=== PATIENT | female | born 1995 | race Caucasian/White ===

== ENCOUNTER 2016-03-08 18:09 | Emergency (ER) | payer MEDICAID ==
[~2016-03-08] VITALS: Ht 190.5 cm; Wt 136.1 kg
[~2016-03-08 18:09] MED LIST: BACTRIM DS 8001 TA1 PO; BIRTH CONTROL; HYDROCODON-ACE1 EACH PO; MOTRIN800 MG PO; NKHM; Orphenadrine C100 MG PO; ROBAXIN750 MG PO; SILVADENE1% TP; VICODIN 500 MG-1 TAB PO; VOLTAREN50 M1 PO
[2016-03-08 18:19] VITALS: BP 140/75
[2016-03-08] MEDS ORDERED: TESSALON PERLE100 M1 PO (20:00)
[2016-03-08] MEDS ORDERED: PROVENTIL0.09 MG/A1 INH (20:00)
[2016-03-08] MEDS ORDERED: HYCODAN/HYDROMET5 ML PO (20:00)
== END 2016-03-08 19:57 | disposition home or self-care (01) ==
LOC: ED 18:09
DX: J06.9 Acute upper respiratory infection, unspecified (principal); F17.200 Nicotine dependence, unspecified, uncomplicated

== ENCOUNTER 2017-02-13 15:22 | Emergency (ER) | payer SELFPAY ==
[~2017-02-13] VITALS: Wt 138.3 kg
[~2017-02-13 15:22] MED LIST changes: +HYCODAN/HYDROMET5 ML PO; +PROVENTIL0.09 MG/A1 INH; +TESSALON PERLE100 M1 PO
[2017-02-13 15:36] VITALS: BP 134/45
[2017-02-13 15:53] LABS: BILIRUBIN NEGATIVE (NEGATIVE); BLOOD NEGATIVE (NEGATIVE); CLARITY SL CLOUDY (CLEAR); COLOR YELLOW (YELLOW); GLUCOSE TRACE (NEGATIVE); KETONE NEGATIVE (NEGATIVE); LEUKO ESTERASE TRACE (NEGATIVE); NITRITE NEGATIVE (NEGATIVE); PH 5.5 (5.0-9.0); SPECIFIC GRAVITY 1.025 (1.005-1.030); UROBILINOGEN 0.2 E.U./dl (0.2-1.0)
[2017-02-13 15:59] LABS: BACTERIA 1+
[2017-02-13] MEDS ORDERED: AMINOPHYLLIN200 MG PO (16:14)
== END 2017-02-13 16:17 | disposition home or self-care (01) ==
LOC: ED 15:22
PROVIDERS: Physician Assistant
DX: Z32.01 Encounter for pregnancy test, result positive (principal); O23.41 Unspecified infection of urinary tract in pregnancy, first trimester; O99.331 Smoking (tobacco) complicating pregnancy, first trimester; F17.200 Nicotine dependence, unspecified, uncomplicated; Z3A.01 Less than 8 weeks gestation of pregnancy

== ENCOUNTER 2017-03-03 00:20 | Emergency (ER) | payer OTHER ==
[~2017-03-03] VITALS: Ht 182.8 cm; Wt 145.1 kg
[~2017-03-03 00:20] MED LIST changes: +AMINOPHYLLIN200 MG PO
[2017-03-03 00:31] VITALS: BP 115/65
[2017-03-03 01:10] LABS: BILIRUBIN NEGATIVE (NEGATIVE); BLOOD NEGATIVE (NEGATIVE); CLARITY SL CLOUDY (CLEAR); COLOR YELLOW (YELLOW); GLUCOSE NEGATIVE (NEGATIVE); KETONE 2+ (NEGATIVE); LEUKO ESTERASE NEGATIVE (NEGATIVE); NITRITE NEGATIVE (NEGATIVE); PH 5.5 (5.0-9.0); SPECIFIC GRAVITY >= 1.030 (1.005-1.030); UROBILINOGEN 0.2 E.U./dl (0.2-1.0)
[2017-03-03 01:19] LABS: BACTERIA 2+; EPITHELIAL CELLS 35-40
[2017-03-03] MEDS ORDERED: MACROBID100 M1 PO (02:11)
== END 2017-03-03 02:16 | disposition home or self-care (01) ==
LOC: ED 00:20
PROVIDERS: Emergency Medicine Emergency Medical Services
DX: O9A.211 Injury, poisoning and certain other consequences of external causes complicating pregnancy, first trimester (principal); S39.012A Strain of muscle, fascia and tendon of lower back, initial encounter; M25.561 Pain in right knee; Z3A.12 12 weeks gestation of pregnancy; V89.2XXA Person injured in unspecified motor-vehicle accident, traffic, initial encounter; Y93.89 Activity, other specified; Y92.89 Other specified places as the place of occurrence of the external cause; Y99.8 Other external cause status

== ENCOUNTER → 2017-03-06 | Outpatient (CLI) | payer SELFPAY ==
[~2017-03-06] MED LIST changes: +MACROBID100 M1 PO
== END ==
LOC: US 15:48
DX: Z34.81 Encounter for supervision of other normal pregnancy, first trimester (principal); Z3A.09 9 weeks gestation of pregnancy

== ENCOUNTER → 2017-03-23 | Outpatient (CLI) | payer OTHER | END | disposition home or self-care (01) | LOC: LAB 07:48 | DX: Z34.80 Encounter for supervision of other normal pregnancy, unspecified trimester (principal); Z3A.00 Weeks of gestation of pregnancy not specified ==

== ENCOUNTER 2017-05-20 14:35 | Emergency (ER) | payer OTHER ==
[~2017-05-20] VITALS: Ht 182.8 cm; Wt 131.5 kg
[2017-05-20 14:40] VITALS: BP 101/77
[2017-05-20 15:24] LABS: BASO % 0.2 % (0.0-1.0); EOS # 0.1 10*3/uL (0.0-0.4); EOS % 0.6 % (1.0-4.0); HEMATOCRIT 36.3 % (37.0-47.0); HEMOGLOBIN 12.2 g/dl (12.0-16.0); LYMPH # 2.2 10*3/uL (1.3-4.4); LYMPH % 20.3 % (27.0-41.0); MEAN CELL VOLUME 90.5 fl (81.0-99.0); MEAN CORPUSCULAR HGB 30.4 pg (27.0-31.0); MEAN CORPUSCULAR HGB CONC 33.6 g/dl (33.0-37.0); MEAN PLATELET VOLUME 10.7 fl (9.6-12.3); MONO # 0.6 10*3/uL (0.1-1.0); MONO % 5.9 % (3.0-9.0); NEUT # 7.8 10*3/uL (2.3-7.9); NEUT % 72.7 % (47.0-73.0); PLATELET COUNT AUTOMATED 220 10*3/uL (130-400); RED BLOOD COUNT 4.01 10*6/uL (4.10-5.10); WHITE BLOOD COUNT 10.8 10*3/uL (4.8-10.8)
[2017-05-20 15:30] LABS: BILIRUBIN NEGATIVE (NEGATIVE); BLOOD NEGATIVE (NEGATIVE); CLARITY CLEAR (CLEAR); COLOR YELLOW (YELLOW); GLUCOSE NEGATIVE (NEGATIVE); KETONE 3+ (NEGATIVE); LEUKO ESTERASE 1+ (NEGATIVE); NITRITE NEGATIVE (NEGATIVE); SPECIFIC GRAVITY 1.025 (1.005-1.030); UROBILINOGEN 0.2 E.U./dl (0.2-1.0)
[2017-05-20 15:43] LABS: ALKALINE PHOSPHATASE 56 U/L (45-117); BUN 6 mg/dl (7-24); CHLORIDE 106 mmol/L (98-107); CREATININE 0.44 mg/dL (0.55-1.02); LIPASE 82 U/L (73-393); POTASSIUM 3.7 mmol/L (3.5-5.1); SGOT/AST 9 IU/L (3-35); SGPT/ALT 13 U/L (12-78); SODIUM 139 mmol/L (136-145); TOTAL PROTEIN 6.5 gm/dL (6.4-8.2)
[2017-05-20 15:47] LABS: BACTERIA 1+
[2017-05-20] MEDS ORDERED: MACROBID100 M1 PO (15:53)
[2017-05-20 16:12] LABS: B-hCG (QUALITATIVE) POSITIVE (NEGATIVE)
== END 2017-05-20 16:33 | disposition home or self-care (01) ==
LOC: ED 14:35
PROVIDERS: Physician Assistant
DX: O26.891 Other specified pregnancy related conditions, first trimester (principal); R11.0 Nausea

== ENCOUNTER → 2017-05-21 | Outpatient (CLI) | payer OTHER | END | disposition home or self-care (01) | LOC: US 15:51 | DX: O26.892 Other specified pregnancy related conditions, second trimester (principal); R10.9 Unspecified abdominal pain; Z3A.20 20 weeks gestation of pregnancy ==

== ENCOUNTER 2017-06-30 15:23 | Emergency (ER) | payer OTHER ==
[~2017-06-30] VITALS: Ht 182.8 cm; Wt 136.1 kg
[2017-06-30 15:27] VITALS: BP 108/63
[2017-06-30 15:50] LABS: BASO % 0.3 % (0.0-1.0); EOS # 0.1 10*3/uL (0.0-0.4); EOS % 0.4 % (1.0-4.0); HEMATOCRIT 36.6 % (37.0-47.0); LYMPH # 2.1 10*3/uL (1.3-4.4); LYMPH % 17.5 % (27.0-41.0); MEAN CELL VOLUME 92.2 fl (81.0-99.0); MEAN CORPUSCULAR HGB 30.2 pg (27.0-31.0); MEAN CORPUSCULAR HGB CONC 32.8 g/dl (33.0-37.0); MEAN PLATELET VOLUME 10.4 fl (9.6-12.3); MONO # 0.6 10*3/uL (0.1-1.0); MONO % 4.9 % (3.0-9.0); NEUT # 9.2 10*3/uL (2.3-7.9); NEUT % 76.5 % (47.0-73.0); PLATELET COUNT AUTOMATED 225 10*3/uL (130-400); RED BLOOD COUNT 3.97 10*6/uL (4.10-5.10)
[2017-06-30 16:04] LABS: BILIRUBIN NEGATIVE (NEGATIVE); BLOOD NEGATIVE (NEGATIVE); CLARITY SL CLOUDY (CLEAR); COLOR YELLOW (YELLOW); GLUCOSE NEGATIVE (NEGATIVE); KETONE 1+ (NEGATIVE); LEUKO ESTERASE TRACE (NEGATIVE); NITRITE NEGATIVE (NEGATIVE); SPECIFIC GRAVITY 1.025 (1.005-1.030); UROBILINOGEN 0.2 E.U./dl (0.2-1.0)
[2017-06-30 16:06] LABS: ALBUMIN 2.8 gm/dl (3.1-4.5); ALKALINE PHOSPHATASE 84 U/L (45-117); BUN 7 mg/dl (7-24); CHLORIDE 109 mmol/L (98-107); CREATININE 0.46 mg/dL (0.55-1.02); POTASSIUM 3.9 mmol/L (3.5-5.1); SGOT/AST 13 IU/L (3-35); SGPT/ALT 21 U/L (12-78); SODIUM 140 mmol/L (136-145); TOTAL PROTEIN 6.5 gm/dL (6.4-8.2)
[2017-06-30 16:12] LABS: BACTERIA 1+
== END 2017-06-30 17:45 | disposition home or self-care (01) ==
LOC: ED 15:23
PROVIDERS: Nurse Practitioner Family
DX: O26.892 Other specified pregnancy related conditions, second trimester (principal); R10.30 Lower abdominal pain, unspecified; Z3A.26 26 weeks gestation of pregnancy

== ENCOUNTER 2019-03-23 15:06 | Emergency (ER) | payer SELFPAY ==
[~2019-03-23] VITALS: Wt 90.7 kg
[2019-03-23 15:15] VITALS: BP 132/64
[2019-03-23] MEDS ORDERED: ANTIBIOTIC28.4 GM T (15:24)
[2019-03-23] MEDS ORDERED: CEPHALEXIN500 M1 PO (15:24)
== END 2019-03-23 15:51 | disposition home or self-care (01) ==
LOC: ED 15:06
DX: S61.011A Laceration without foreign body of right thumb without damage to nail, initial encounter (principal); Z23 Encounter for immunization; F32.9 Major depressive disorder, single episode, unspecified; Z79.899 Other long term (current) drug therapy; W26.8XXA Contact with other sharp object(s), not elsewhere classified, initial encounter; Y93.89 Activity, other specified; Y92.89 Other specified places as the place of occurrence of the external cause; Y99.8 Other external cause status

== ENCOUNTER 2022-02-02 20:41 | Emergency (ER) | payer OTHER ==
[~2022-02-02] VITALS: Ht 180.3 cm; Wt 136.1 kg
[~2022-02-02 20:41] MED LIST changes: +ANTIBIOTIC28.4 GM T; +CEPHALEXIN500 M1 PO
[2022-02-02 20:49] VITALS: BP 143/66
[2022-02-02 21:08] LABS: BILIRUBIN Negative (Negative); BLOOD Negative (Negative); CLARITY Clear (Clear); COLOR Yellow (Yellow); GLUCOSE 3+ (Negative); KETONE Negative (Negative); LEUKO ESTERASE Negative (Negative); NITRITE Negative (Negative); SPECIFIC GRAVITY >= 1.030 (1.001-1.030); UROBILINOGEN 0.2 E.U./dl (0.0-1.0)
[2022-02-02 21:20] LABS: WBC 0-2 wbc/hpf (0-5)
[2022-02-02 21:21] LABS: BASO # 0.1 10*3/uL (0.0-0.1); BASO % 0.6 % (0.0-1.0); EOS # 0.2 10*3/uL (0.0-0.4); EOS % 1.7 % (1.0-4.0); HEMATOCRIT 42.8 % (37.0-47.0); LYMPH # 4.4 10*3/uL (1.3-4.4); LYMPH % 38.6 % (27.0-41.0); MEAN CELL VOLUME 88.1 fl (81.0-99.0); MEAN CORPUSCULAR HGB 30.2 pg (27.0-31.0); MEAN CORPUSCULAR HGB CONC 34.3 g/dl (33.0-37.0); MEAN PLATELET VOLUME 10.1 fl (9.6-12.3); MONO # 0.5 10*3/uL (0.1-1.0); MONO % 4.7 % (3.0-9.0); NEUT # 6.2 10*3/uL (2.3-7.9); NEUT % 54.1 % (47.0-73.0); PLATELET COUNT AUTOMATED 231 10*3/uL (130-400); RED BLOOD COUNT 4.86 10*6/uL (4.10-5.10); RED CELL DISTRI WIDTH 11.9 % (0-14.5); WHITE BLOOD COUNT 11.5 10*3/uL (4.8-10.8)
[2022-02-02 21:51] LABS: ALKALINE PHOSPHATASE 69 U/L (46-116); BUN 12 mg/dl (9-23); CHLORIDE 102 mmol/L (98-107); LIPASE 35 U/L (12-53); POTASSIUM 3.7 mmol/L (3.4-5.1); SGPT/ALT 22 U/L (10-49); SODIUM 136 mmol/L (136-145); TOTAL PROTEIN 6.7 gm/dL (6.0-8.0)
[2022-02-02 21:56] LABS: B-hCG (QUALITATIVE) NEGATIVE (NEGATIVE)
[2022-02-02] MEDS ORDERED: NAPROSYN500 MG PO (23:48)
[2022-02-02] MEDS ORDERED: CYCLOBENZAPRINE10 MG PO (23:48)
== END 2022-02-02 23:58 | disposition home or self-care (01) ==
LOC: ED 20:41
PROVIDERS: Physician Assistant
DX: M54.50 Low back pain, unspecified (principal); R73.9 Hyperglycemia, unspecified; Z90.89 Acquired absence of other organs; Z98.890 Other specified postprocedural states

== ENCOUNTER 2022-10-09 20:25 | Emergency (ER) | payer OTHER ==
[~2022-10-09] VITALS: Ht 180.3 cm; Wt 136.1 kg
[~2022-10-09 20:25] MED LIST changes: +CYCLOBENZAPRINE10 MG PO; +NAPROSYN500 MG PO
[2022-10-09 20:32] VITALS: BP 143/97
[2022-10-09] MEDS ORDERED: MELOXICAM15 MG PO (22:21)
== END 2022-10-09 23:12 | disposition home or self-care (01) ==
LOC: ED 20:25
DX: S83.91XA Sprain of unspecified site of right knee, initial encounter (principal); F32.A Depression, unspecified; Z90.89 Acquired absence of other organs; Z98.890 Other specified postprocedural states; Z87.891 Personal history of nicotine dependence; W01.0XXA Fall on same level from slipping, tripping and stumbling without subsequent striking against object, initial encounter; Y93.E5 Activity, floor mopping and cleaning; Y92.002 Bathroom of unspecified non-institutional (private) residence as the place of occurrence of the external cause; Y99.8 Other external cause status

== ENCOUNTER 2023-05-22 11:23 | Emergency (ER) | payer OTHER ==
[~2023-05-22] VITALS: Ht 180.3 cm; Wt 129.3 kg
[~2023-05-22 11:23] MED LIST changes: -CITALOPRAM20 MG PO; -CLONIDINE HCL0.2 MG PO; -ESCITALOPRAM OX10 MG PO; -LAMOTRIGINE25 M1 PO; -METFORMIN HYD1000 MG PO; -TRULICITY0.75 MG/0. SC
[2023-05-22 11:28] VITALS: BP 125/68
[2023-05-22] MEDS ORDERED: ESCITALOPRAM OX10 MG PO (11:29)
[2023-05-22] MEDS ORDERED: CITALOPRAM20 MG PO (11:30)
[2023-05-22] MEDS ORDERED: LAMOTRIGINE25 M1 PO (11:30)
[2023-05-22] MEDS ORDERED: CLONIDINE HCL0.2 MG PO (11:30)
[2023-05-22] MEDS ORDERED: TRULICITY0.75 MG/0. SC (11:31)
[2023-05-22] MEDS ORDERED: METFORMIN HYD1000 MG PO (11:31)
[2023-05-22 12:00] LABS: BASO # 0.1 10*3/uL (0.0-0.1); BASO % 0.4 % (0.0-1.0); EOS # 0.2 10*3/uL (0.0-0.4); EOS % 1.6 % (1.0-4.0); HEMATOCRIT 42.5 % (37.0-47.0); LYMPH # 3.1 10*3/uL (1.3-4.4); LYMPH % 25.9 % (27.0-41.0); MEAN CORPUSCULAR HGB 29.8 pg (27.0-31.0); MEAN PLATELET VOLUME 10.3 fl (9.6-12.3); MONO # 0.7 10*3/uL (0.1-1.0); MONO % 5.8 % (3.0-9.0); NEUT # 7.9 10*3/uL (2.3-7.9); PLATELET COUNT AUTOMATED 271 10*3/uL (130-400); RED BLOOD COUNT 4.57 10*6/uL (4.10-5.10); RED CELL DISTRI WIDTH 11.9 % (0-14.5)
[2023-05-22 12:11] LABS: ACT PARTIAL THROMBO TIME 26.8 SECONDS (20.0-32.1)
[2023-05-22 12:19] LABS: BILIRUBIN Negative (Negative); BLOOD Negative (Negative); CLARITY Clear (Clear); COLOR Yellow (Yellow); GLUCOSE 3+ (Negative); KETONE Trace (Negative); LEUKO ESTERASE Negative (Negative); NITRITE Negative (Negative); SPECIFIC GRAVITY >= 1.030 (1.001-1.030); UROBILINOGEN 0.2 E.U./dl (0.0-1.0)
[2023-05-22 12:28] LABS: BACTERIA 2+; WBC 0-2 wbc/hpf (0-5)
[2023-05-22 12:29] LABS: ALKALINE PHOSPHATASE 71 U/L (46-116); BUN 10 mg/dl (9-23); CHLORIDE 103 mmol/L (98-107); LIPASE 50 U/L (12-53); POTASSIUM 4.1 mmol/L (3.4-5.1); SGPT/ALT 13 U/L (5-49); TOTAL PROTEIN 7.1 gm/dL (6.0-8.0)
[2023-05-22 12:30] LABS: BETA-HCG, QUANT < 3.0 mIU/mL (3-10)
[2023-05-22] MEDS ORDERED: Acetaminophen/Hydrocodone 5 MG/325 MG TABLET PO ONE (13:25)
[2023-05-22] MEDS ORDERED: Ondansetron Hydrochloride 4 MG TAB SL ONE (13:30)
== END 2023-05-22 15:19 | disposition home or self-care (01) ==
LOC: ED 11:23
PROVIDERS: Nurse Practitioner Family
DX: K57.32 Diverticulitis of large intestine without perforation or abscess without bleeding (principal); R73.9 Hyperglycemia, unspecified; F32.A Depression, unspecified; D72.829 Elevated white blood cell count, unspecified; Z90.89 Acquired absence of other organs; Z98.890 Other specified postprocedural states

== ENCOUNTER → 2023-05-22 | Outpatient (CLI) | payer OTHER ==
[~2023-05-22] MED LIST changes: +CITALOPRAM20 MG PO; +CLONIDINE HCL0.2 MG PO; +ESCITALOPRAM OX10 MG PO; +LAMOTRIGINE25 M1 PO; +MELOXICAM15 MG PO; +METFORMIN HYD1000 MG PO; +TRULICITY0.75 MG/0. SC
[2023-05-22 16:25] LABS: FREE T4 0.95 ng/dl (0.89-1.76)
[2023-05-24 00:06] LABS: TESTOSTERONE FREE, (DIRECT) 2.9 pg/mL (0.0-4.2)
== END | disposition home or self-care (01) ==
LOC: LAB 15:21
PROVIDERS: ATTEND Nurse Practitioner Women's Health
DX: E28.2 Polycystic ovarian syndrome (principal); N92.1 Excessive and frequent menstruation with irregular cycle; L68.0 Hirsutism

== ENCOUNTER 2024-03-01 21:34 | Emergency (ER) | payer OTHER ==
[~2024-03-01] VITALS: Ht 172.7 cm; Wt 112.5 kg
[~2024-03-01 21:34] MED LIST changes: +CITALOPRAM20 MG PO; +CLONIDINE HCL0.2 MG PO; +ESCITALOPRAM OX10 MG PO; +LAMOTRIGINE25 M1 PO; +METFORMIN HYD1000 MG PO; +TRULICITY0.75 MG/0. SC
[2024-03-01 21:58] VITALS: BP 108/62
== END 2024-03-01 23:37 | disposition home or self-care (01) ==
LOC: ED 21:34
DX: J10.1 Influenza due to other identified influenza virus with other respiratory manifestations (principal); Z20.822 Contact with and (suspected) exposure to COVID-19; F32.A Depression, unspecified; Z90.89 Acquired absence of other organs; Z98.890 Other specified postprocedural states

== ENCOUNTER → 2024-04-15 | Outpatient (CLI) | payer OTHER | END | disposition home or self-care (01) | LOC: US 08:15 | PROVIDERS: ATTEND Nurse Practitioner Family | DX: N64.52 Nipple discharge (principal) ==

== ENCOUNTER → 2024-07-15 | Outpatient (CLI) | payer OTHER | END | disposition home or self-care (01) | LOC: US 02:19 | PROVIDERS: ATTEND Nurse Practitioner Family | DX: N63.11 Unspecified lump in the right breast, upper outer quadrant (principal); N63.13 Unspecified lump in the right breast, lower outer quadrant; N64.4 Mastodynia ==